=== PATIENT | female | born 1950 | race African-American/Black ===

== ENCOUNTER 2021-02-19 13:07 | Observation (INO) ==
[2021-02-19] MEDS ORDERED: HYDROmorphone 2 MG/1 ML VIAL IV STA (13:25)
[2021-02-19] MEDS ORDERED: ONDANSETRON ODT 4 MG TABLET PO STA (13:25)
[2021-02-19] MEDS ORDERED: SODIUM CHLORIDE 0.9% 1,000 ML IV STA (13:25)
[2021-02-19 14:32] LABS: Basophils # 0.1 10*3/uL (0.0-0.2); Basophils % 0.4 % (0.0-0.8); Eosinophils # 0.2 10*3/uL (0.0-0.87); Eosinophils % 1.5 % (0.00-10.9); Hematocrit 38.8 VOL% (35.7-47.0); Hemoglobin 12.2 GM/DL (12.0-16.0); Immature Granulocytes % 0.5 %; Immature Granulocytes Absolute 0.07 #; Lymphocytes # 2.8 10*3/uL (1.4-4.0); Mean Corpuscular HGB Conc 31.4 GM/DL (32-36); Mean Corpuscular Volume 79.8 FL (87-102); Mean Platelet Volume 10.8 FL (9.6-12.0); Monocytes % 5.8 % (1.7-12.7); Neutrophils % 70.8 % (38.7-73.9); Platelet Count 325 T/CUMM (130-400); Red Blood Count 4.86 MC/CUMM (3.8-5.5); Red Cell Distribution Width 20.2 % (9.3-17.3); White Blood Count 13.4 T/CUMM (4-12)
[2021-02-19 14:57] LABS: Alanine Aminotransferase 14 U/L (13-56); Albumin 3.2 G/DL (3.4-5.0); Alkaline Phosphatase 112 U/L (45-117); Aspartate Amino Transferase 18 U/L (0-37); Blood Urea Nitrogen 13 MG/DL (7-18); Carbon Dioxide 27 MMOL/L (21-32); Estimated Glom Filtration Rate 79 ML/MIN; Glucose 141 MG/DL (74-106); Osmolality,Calculated 280.4 MOS/KG (273-304); Potassium 4.1 MMOL/L (3.5-5.1); Sodium 140 MMOL/L (136-145); Total Protein 7.5 G/DL (6.4-8.2)
[2021-02-19 15:24] LABS: Bacteria,Urine Occasional /HPF (Few); Bilirubin,Urine Negative (Negative); Blood, Urine Negative (Negative); Glucose,Urine (UA) Negative (Negative); Hyaline Casts,Urine 3 /LPF (0-3); Ketones,Urine Negative (Negative); Mucus,Urine Moderate /LPF (Occasional); Nitrite,Urine Negative (Negative); Protein,Urine 100 MG/DL; RBC,Urine 1 /HPF (0-4); Squamous Epithelial Cell,Urine Few /HPF (0-10); Urine Appearance Slightly Hazy (Clear); Urine Color Yellow (Yellow); Urine Specific Gravity 1.023 (1.001-1.035); Urine Urobilinogen < 2.0 EU/DL (0.2-1.0)
[2021-02-19] MEDS ORDERED: hydrALAZINE 20 MG/1 ML VIAL IV PRN (16:54)
[2021-02-19] MEDS ORDERED: DEXTROSE 50% 25 GM/50 ML VIAL IV PRN (16:54)
[2021-02-19] MEDS ORDERED: GLUCAGON 1 MG VIAL IM PRN (16:54)
[2021-02-19] MEDS ORDERED: NITROGLYCERIN SL 0.4 MG TABLET SL PRN (16:58)
[2021-02-19] MEDS ORDERED: cefTRIAXone 1,000 MG in SODIUM CHLORIDE 0.9% 100 ML IV SCH (17:30)
[2021-02-19 17:31] LABS: Risk Ratio 4.1; Thyroid Stimulating Hormone 1.73 uIU/ml (0.358-3.74); VLDL CHOLESTEROL 26.8 MG/DL
[2021-02-19] MEDS: LACTATED RINGERS 1,000 ML IV SCH (18:59)
[2021-02-19] MEDS: SACUBITRIL/VALSARTAN 49-51 MG TABLET PO SCH (21:41)
[2021-02-19] MEDS: VERAPAMIL SR 120 MG TABLET PO SCH (21:41)
[2021-02-19] MEDS: carvediloL 25 MG TABLET PO SCH (21:41)
[2021-02-19] MEDS: DOCUSATE SODIUM 100 MG CAPSULE PO SCH (21:41)
[2021-02-19] MEDS: ATORVASTATIN 40 MG TABLET PO SCH (21:41)
[2021-02-19] MEDS: INSULIN GLARGINE 100 UNIT/ML SUBCUT SCH (21:41)
[2021-02-19] MEDS: ENOXAPARIN 40 MG/0.4 ML SYRINGE SUBCUT SCH (21:43)
[2021-02-19] MEDS: INSULIN LISPRO 100 UNIT/ML SUBCUT SCH (22:00)
[2021-02-19] MEDS: metroNIDAZOLE INJ 500 MG in PREMIX 1 EACH IV SCH (22:40)
[2021-02-20 02:15] LABS: Basophils % 0.3 % (0.0-0.8); Eosinophils # 0.2 10*3/uL (0.0-0.87); Eosinophils % 1.6 % (0.00-10.9); Hematocrit 36.5 VOL% (35.7-47.0); Hemoglobin 11.5 GM/DL (12.0-16.0); Immature Granulocytes % 0.5 %; Immature Granulocytes Absolute 0.05 #; Lymphocytes # 3.3 10*3/uL (1.4-4.0); Lymphocytes % 29.8 % (21.3-54.2); Mean Corpuscular HGB Conc 31.5 GM/DL (32-36); Mean Corpuscular Volume 80.4 FL (87-102); Mean Platelet Volume 10.4 FL (9.6-12.0); Monocytes % 6.5 % (1.7-12.7); Neutrophils % 61.3 % (38.7-73.9); Platelet Count 289 T/CUMM (130-400); Red Blood Count 4.54 MC/CUMM (3.8-5.5)
[2021-02-20 02:34] LABS: Calcium 9.6 MG/DL (8.5-10.1); Osmolality,Calculated 282.1 MOS/KG (273-304); Potassium 3.8 MMOL/L (3.5-5.1)
[2021-02-20] MEDS: metroNIDAZOLE INJ 500 MG in PREMIX 1 EACH IV SCH ×3 (04:32→21:26)
[2021-02-20] MEDS: LEVOTHYROXINE 75 MCG TABLET PO SCH (06:18)
[2021-02-20] MEDS: INSULIN LISPRO 100 UNIT/ML SUBCUT SCH ×4 (08:26→22:53)
[2021-02-20] MEDS: carvediloL 25 MG TABLET PO SCH ×2 (08:38→17:29)
[2021-02-20] MEDS ORDERED: MORPHINE 4 MG/1 ML VIAL IV PRN (09:24)
[2021-02-20] MEDS: LACTATED RINGERS 1,000 ML IV SCH (10:49)
[2021-02-20] MEDS: SACUBITRIL/VALSARTAN 49-51 MG TABLET PO SCH ×2 (11:06→21:25)
[2021-02-20] MEDS: ISOSORBIDE MONONITRATE 30 MG TABLET PO SCH (11:06)
[2021-02-20] MEDS: DOCUSATE SODIUM 100 MG CAPSULE PO SCH ×2 (11:06→21:25)
[2021-02-20] MEDS: ASPIRIN EC 81 MG TABLET PO SCH (11:08)
[2021-02-20] MEDS: DULoxetine 30 MG CAPSULE PO SCH (11:09)
[2021-02-20] MEDS: POLYETHYLENE GLYCOL POWDER 17 GM PACK PO SCH (11:10)
[2021-02-20] MEDS: VERAPAMIL SR 120 MG TABLET PO SCH ×2 (11:13→21:25)
[2021-02-20] MEDS: ENOXAPARIN 40 MG/0.4 ML SYRINGE SUBCUT SCH (21:25)
[2021-02-20] MEDS: ATORVASTATIN 40 MG TABLET PO SCH (21:25)
[2021-02-20] MEDS: INSULIN GLARGINE 100 UNIT/ML SUBCUT SCH (21:26)
[2021-02-20] MEDS: cefTRIAXone 2,000 MG in SODIUM CHLORIDE 0.9% 100 ML IV SCH (23:14)
[2021-02-21] MEDS: LACTATED RINGERS 1,000 ML IV SCH ×2 (03:06→18:57)
[2021-02-21] MEDS: metroNIDAZOLE INJ 500 MG in PREMIX 1 EACH IV SCH ×2 (05:43→17:30)
[2021-02-21] MEDS: LEVOTHYROXINE 75 MCG TABLET PO SCH (05:43)
[2021-02-21 06:02] LABS: Basophils # 0.1 10*3/uL (0.0-0.2); Basophils % 0.6 % (0.0-0.8); Eosinophils # 0.3 10*3/uL (0.0-0.87); Eosinophils % 2.4 % (0.00-10.9); Hematocrit 34.5 VOL% (35.7-47.0); Hemoglobin 10.7 GM/DL (12.0-16.0); Immature Granulocytes % 0.2 %; Immature Granulocytes Absolute 0.02 #; Lymphocytes # 3.3 10*3/uL (1.4-4.0); Lymphocytes % 32.7 % (21.3-54.2); Mean Corpuscular Volume 81.2 FL (87-102); Mean Platelet Volume 10.8 FL (9.6-12.0); Monocytes % 7.1 % (1.7-12.7); Platelet Count 297 T/CUMM (130-400); Red Blood Count 4.25 MC/CUMM (3.8-5.5); Red Cell Distribution Width 20.1 % (9.3-17.3); White Blood Count 10.2 T/CUMM (4-12)
[2021-02-21 06:29] LABS: Calcium 9.5 MG/DL (8.5-10.1); Osmolality,Calculated 286.8 MOS/KG (273-304); Potassium 3.7 MMOL/L (3.5-5.1)
[2021-02-21] MEDS: INSULIN LISPRO 100 UNIT/ML SUBCUT SCH ×4 (08:13→20:19)
[2021-02-21] MEDS: ISOSORBIDE MONONITRATE 30 MG TABLET PO SCH (08:59)
[2021-02-21] MEDS: DULoxetine 30 MG CAPSULE PO SCH (08:59)
[2021-02-21] MEDS: ASPIRIN EC 81 MG TABLET PO SCH (08:59)
[2021-02-21] MEDS: DOCUSATE SODIUM 100 MG CAPSULE PO SCH ×2 (08:59→20:28)
[2021-02-21] MEDS: SACUBITRIL/VALSARTAN 49-51 MG TABLET PO SCH ×2 (08:59→20:28)
[2021-02-21] MEDS: carvediloL 25 MG TABLET PO SCH ×2 (08:59→17:30)
[2021-02-21] MEDS: POLYETHYLENE GLYCOL POWDER 17 GM PACK PO SCH (09:00)
[2021-02-21] MEDS: VERAPAMIL SR 120 MG TABLET PO SCH ×2 (09:07→20:28)
[2021-02-21] MEDS: ACETAMINOPHEN 325 MG TABLET PO PRN ×2 (10:47→22:35)
[2021-02-21] MEDS: ONDANSETRON 4 MG/2 ML VIAL IV PRN (12:13)
[2021-02-21] MEDS: INSULIN GLARGINE 100 UNIT/ML SUBCUT SCH (17:59)
[2021-02-21] MEDS: ATORVASTATIN 40 MG TABLET PO SCH (18:00)
[2021-02-21] MEDS: cefTRIAXone 2,000 MG in SODIUM CHLORIDE 0.9% 100 ML IV SCH (20:28)
[2021-02-22] MEDS: LACTATED RINGERS 1,000 ML IV SCH ×2 (00:07→12:29)
[2021-02-22] MEDS: metroNIDAZOLE INJ 500 MG in PREMIX 1 EACH IV SCH ×2 (00:09→08:52)
[2021-02-22 05:13] LABS: Basophils % 0.3 % (0.0-0.8); Eosinophils # 0.3 10*3/uL (0.0-0.87); Eosinophils % 3.6 % (0.00-10.9); Hematocrit 35.2 VOL% (35.7-47.0); Hemoglobin 10.8 GM/DL (12.0-16.0); Immature Granulocytes % 0.2 %; Immature Granulocytes Absolute 0.02 #; Lymphocytes # 2.7 10*3/uL (1.4-4.0); Lymphocytes % 31.7 % (21.3-54.2); Mean Corpuscular HGB Conc 30.7 GM/DL (32-36); Mean Corpuscular Volume 80.7 FL (87-102); Mean Platelet Volume 10.3 FL (9.6-12.0); Monocytes % 7.9 % (1.7-12.7); Neutrophils % 56.3 % (38.7-73.9); Platelet Count 294 T/CUMM (130-400); Red Blood Count 4.36 MC/CUMM (3.8-5.5); Red Cell Distribution Width 19.8 % (9.3-17.3); White Blood Count 8.6 T/CUMM (4-12)
[2021-02-22] MEDS: LEVOTHYROXINE 75 MCG TABLET PO SCH (05:30)
[2021-02-22 05:39] LABS: Calcium 9.1 MG/DL (8.5-10.1); Osmolality,Calculated 280.1 MOS/KG (273-304); Potassium 3.7 MMOL/L (3.5-5.1)
[2021-02-22] MEDS: INSULIN LISPRO 100 UNIT/ML SUBCUT SCH ×2 (07:12→12:09)
[2021-02-22] MEDS ORDERED: LIDOCAINE 2% 5 ML VIAL ONE (07:47)
[2021-02-22] MEDS ORDERED: propofoL 200 MG/20 ML VIAL IV ONE (07:47)
[2021-02-22] MEDS: ONDANSETRON 4 MG/2 ML VIAL IV PRN (09:07)
[2021-02-22] MEDS: POLYETHYLENE GLYCOL POWDER 17 GM PACK PO SCH (09:08)
[2021-02-22] MEDS: ISOSORBIDE MONONITRATE 30 MG TABLET PO SCH (09:10)
[2021-02-22] MEDS: VERAPAMIL SR 120 MG TABLET PO SCH (09:11)
[2021-02-22] MEDS: ASPIRIN EC 81 MG TABLET PO SCH (09:11)
[2021-02-22] MEDS: carvediloL 25 MG TABLET PO SCH (09:11)
[2021-02-22] MEDS: SACUBITRIL/VALSARTAN 49-51 MG TABLET PO SCH (09:11)
[2021-02-22] MEDS: DOCUSATE SODIUM 100 MG CAPSULE PO SCH (09:11)
[2021-02-22] MEDS: DULoxetine 30 MG CAPSULE PO SCH (09:12)
[2021-02-22 11:46] VITALS: BP 160/77
== END 2021-02-22 14:29 | disposition home health service (06) ==
LOC: N.EDINP 13:07 → N.ED 13:07 → SUATTDRO 16:33 → N.5E 18:19
PROVIDERS: ADMIT Emergency Medicine; ATTEND Internal Medicine Geriatric Medicine